=== PATIENT | female | born 1990 | race Two or more races ===

== ENCOUNTER 2017-06-01 13:11 | Emergency (ER) | payer MEDICAID, SELFPAY ==
[~2017-06-01] VITALS: Ht 147.3 cm; Wt 64.4 kg
[2017-06-01 13:14] VITALS: BP 130/82
[2017-06-01] MEDS ORDERED: KETOROLAC 30 MG/1 ML ONE (14:26)
[2017-06-01] MEDS ORDERED: KETOROLAC 30 MG/1 ML IM ONE (14:30)
== END 2017-06-01 14:56 | disposition home or self-care (01) ==
LOC: ED 14:50
DX: S39.012A Strain of muscle, fascia and tendon of lower back, initial encounter (principal); F12.10 Cannabis abuse, uncomplicated; X58.XXXA Exposure to other specified factors, initial encounter; Y93.89 Activity, other specified; Y99.8 Other external cause status; Y92.89 Other specified places as the place of occurrence of the external cause
CPT/HCPCS: 96372; 99283; J1885